=== PATIENT | female | born 1955 | race Caucasian/White ===

== ENCOUNTER 2020-10-12 14:36 | Emergency (ER) | payer OTHER, SELFPAY ==
--- NOTE | ~2020-10-12 | XR_ITS ---
EXAMINATION: XR chest 2V EXAM DATE: 10/12/2020 16:07 INDICATION: Cough and congestion for 2 days. TECHNIQUE: Frontal and lateral projections of the chest obtained and reviewed. There is no prior clementina dy for comparison. FINDINGS: The lungs are clear. There are no pleural effusions. The cardiomediastinal silhouette is within normal limits. There is no pneumothorax suspected. The bones and soft tissues are unremarkab le. IMPRESSION: No acute cardiopulmonary findings. Reviewed, dictated and finalized at location A.
[2020-10-12 15:00] VITALS: BP 152/109; PULSE 77; RESP 16; TEMP 36.3; O2SAT 99
--- NOTE | 2020-10-12 16:00 | ECG_ITS ---
Measurements Intervals [place] Rate: 67 P: 3 MO: 189 QRS: -29 QRSD: 98 T: -32 QT: 383 QTc: 407 Interpretive Statements SINUS RHYTHM VOLTAGE CRITERIA FOR LVH BORDERLINE R WAVE PROGRESSION, ANTERIOR LEADS NONSPECIFIC T-WAVE ABNORMALITY- ANTEROLAT/INF LEADS BASELINE ARTIFACT- I, II, III, AVR, AVL, AVF BORDERLINE ECG Electronically Signed On 10-12-2020 16:33:57 CDT by Elier Martell D.O.
--- NOTE | 2020-10-12 16:16 | ED.GENADULT ---
HPI - General Adult General Chief complaint: Upper Respiratory Infection Stated complaint: congestion Source: patient Mode of arrival: ambulatory Limitations: no limitations History of Present Illness HPI narrative: Patient presents for evaluation of cough for the last 2 days. She states that cough is productive of white sputum. She has experienced some pleuritic chest pain that she describes as something sitting on her chest. She denies pain other than with episodes of coughing. No fever, chills, nausea, vomiting. She states she has had mucopurulent rhinorrhea and dental pain, which she has experienced in the past with a sinus infection. In the past augmentin and prednisone have helped. She has some flonase at home, which has also helped historically. She has experienced some mild leg swelling. She is currently on furosemide and has been compliant with therapy. She states her last echocardiogram was within the last 2-3 yrs. She has a cardiac cath at that time also, which was negative, per her reports. She states that her smokes but she does not smoke herself. No personal history of VTE. She has received both of her vaccinations. No personal history of Covid. She states that she is planning on seeing family this coming weekend and wants to ensure she feels better prior to that time. Related Data Home Medications Medication Instructions Recorded Confirmed aspirin 81 mg PO DAILY 10/12/20 10/12/20 ergocalciferol (vitamin D2) 50 mcg PO DAILY 10/12/20 10/12/20 furosemide 1 mg PO DAILY 10/12/20 10/12/20 hydrocodone-acetaminophen 1 tablet PO Q6-12H 10/12/20 10/12/20 lansoprazole [Prevacid] 15 mg PO DAILY 10/12/20 10/12/20 levothyroxine 1 mcg PO DAILY 10/12/20 10/12/20 lovastatin 1 mg PO DAILY 10/12/20 10/12/20 meclizine [Antivert] 25 mg PO BID 10/12/20 10/12/20 Allergies Allergy/AdvReac Type Severity Reaction Status Date / Time CYCLOBENZAPRINE HCL Allergy Mild Rash Uncoded 10/12/20 16:01 CODIENE AdvReac Nausea, Uncoded 10/12/20 16:01 vomiting Review of Systems Review of Systems: Narrative: CONSTITUTIONAL: Denies fever, chills, or sweats. EYES: Denies visual changes, redness, or discharge. ENT: Reports mucopurulent rhinorrhea. Denies sore throat, or otalgia. CARDIOVASCULAR: Reports pleuritic chest pain but denies chest pain otherwise. Reports bilateral lower extremity swelling. Denies palpitations. RESPIRATORY: Reports cough. Denies shortness of breath. GASTROINTESTINAL: Denies abdominal pain, nausea, vomiting, or diarrhea. GENITOURINARY: Denies dysuria or hematuria. SKIN: Denies rash or itching. MUSCULOSKELETAL: Denies back pain, joint pain, or myalgia. NEUROLOGIC: Denies headache, numbness, dizziness, or weakness. PSYCHIATRIC: Denies anxiety or depression. [facility] Past Medical History Medical History (Updated 10/12/20 @ 16:40 by Samuel Cardenas, [employer], ) Hypertension Hypothyroidism Surgical History Surgical History History of endometrial ablation Family History Family History Mother No pertinent past medical history Social History Social History Smoking status: Never smoker Substance use: never Living arrangements: with family Gender identity (if verbalized by the patient): Female Sexual Orientation (if Verbalized by the Patient): Straight or Heterosexual Spiritual care concerns: No Exam Narrative: Exam Narrative: GENERAL: Well-appearing, well-nourished, and in no acute distress. HEAD: Normocephalic, atraumatic. EYES: PERRLA and EOMI. ENT: Nares clear, no rhinorrhea or epistaxis. Mucous membranes moist. Oropharynx without tonsillar hypertrophy exudate or other lesions. Bilateral TMs pearly winter nonbulging NECK: Supple. No adenopathy or masses. No carotid bruits or JVD CHEST: Clear to auscultat
== END 2020-10-12 16:46 | disposition home or self-care (01) ==
PROVIDERS: Emergency Provider Nurse Practitioner
DX: R05 Cough (principal); J00 Acute nasopharyngitis [common cold]; J01.90 Acute sinusitis, unspecified; I10 Essential (primary) hypertension; E03.9 Hypothyroidism, unspecified
CPT/HCPCS: 71046; 87426; 93005; 99213; C9803; G0463

== ENCOUNTER 2021-10-25 18:18 | Emergency (ER) | payer OTHER, SELFPAY ==
[2021-10-25 18:28] VITALS: BP 141/82; PULSE 83; RESP 16; TEMP 37.3; O2SAT 99
--- NOTE | 2021-10-25 18:49 | ED.EAR ---
HPI - Ear Problem General Chief complaint: Ear Stated complaint: ear pain Time Seen by Provider: 10/25/21 18:50 Source: patient, RN notes reviewed and old records reviewed Mode of arrival: ambulatory Limitations: no limitations History of Present Illness HPI Narrative: 65-year-old female presents to the [facility] with complaints of left ear pain and decreased hearing for the last 2 weeks. Has been taking Benadryl at night, Claritin during the day. Tried calling her primary care doctor they said it could be COVID and to go to the emergency room or the [facility]. Patient denies any other symptoms, no loss of taste or smell, no chest pain, cough, abdominal pain, nausea vomiting or diarrhea. MD Complaint: ear pain Location: left ear Related Data Home Medications Medication Instructions Recorded Confirmed aspirin 81 mg tablet 81 mg PO DAILY 10/12/20 10/25/21 ergocalciferol (vitamin D2) 50 mcg 50 mcg PO DAILY 10/12/20 10/25/21 (2,000 unit) capsule furosemide 20 mg tablet 1 mg PO DAILY 10/12/20 10/25/21 hydrocodone 5 mg-acetaminophen 325 1 tablet PO Q6-12H 10/12/20 10/25/21 mg tablet lansoprazole 15 mg capsule,delayed 15 mg PO DAILY 10/12/20 10/25/21 release (Prevacid) levothyroxine 75 mcg tablet 1 mcg PO DAILY 10/12/20 10/25/21 lovastatin 40 mg tablet 1 mg PO DAILY 10/12/20 10/25/21 meclizine 25 mg tablet 25 mg PO BID 10/12/20 10/25/21 Allergies Allergy/AdvReac Type Severity Reaction Status Date / Time CYCLOBENZAPRINE HCL Allergy Mild Rash Uncoded 10/25/21 18:20 CODIENE AdvReac Nausea, Uncoded 10/25/21 18:20 vomiting Review of Systems Review of Systems: All systems reviewed & are unremarkable except as noted in HPI and below Constitutional: Constitutional: Reports no additional constitutional complaints, Denies chills and Denies fever(s) Eyes: Eyes: Reports no additional eye complaints ENT: Reports as per HPI, Denies change in voice, Denies dental pain, Denies vertigo, Denies dizziness, Reports nasal congestion and Denies throat swelling Comments: Ear pain Cardiovascular: Cardiovascular: Reports no additional cardiovascular complaints, Denies chest pain and Denies dyspnea Respiratory: Respiratory: Reports no additional respiratory complaints, Denies cough and Denies dyspnea Gastrointestinal: Gastrointestinal: Reports no additional gastrointestinal complaints, Denies abdominal pain, Denies nausea and Denies vomiting Musculoskeletal: Musculoskeletal: Reports no additional musculoskeletal complaints Integumentary/Breasts: Skin/Breast: Reports system reviewed and no additional complaints, except as docu Neurologic: Reports system reviewed and no additional complaints, except as documented, Denies vertigo and Denies dizziness Psychiatric: Psychiatric: Reports no additional psychiatric complaints Allergic/Immunologic: Allergic/Immunologic: Reports no additional allergic/immunologic complaints and Denies throat swelling PMFSH Past Medical History Medical History (Updated 10/25/21 @ 18:55 by Maru Hernandez APRN) Hypertension Hypothyroidism Surgical History Surgical History History of endometrial ablation Family History Family History Mother No pertinent past medical history Social History Social History Smoking status: Never smoker Substance use: never Gender identity (if verbalized by the patient): Female Sexual Orientation (if Verbalized by the Patient): Straight or Heterosexual Spiritual care concerns: No Comments At the time of my signature, I reviewed and agree with the nursing past medical, surgical, social, and family history. There is no relevant family history pertinent to the patient complaint. Exam Const: General: healthy appearing and no acute distress Nutritional Appearance: well nourished [place]
== END 2021-10-25 18:58 | disposition home or self-care (01) ==
PROVIDERS: Emergency Provider Nurse Practitioner; PCP Physician Assistant
DX: H66.92 Otitis media, unspecified, left ear (principal); I10 Essential (primary) hypertension; E03.9 Hypothyroidism, unspecified; Z79.82 Long term (current) use of aspirin
CPT/HCPCS: 99213; G0463

== ENCOUNTER 2022-03-03 15:26 | Emergency (ER) | payer MEDICARE, SELFPAY ==
--- NOTE | 2022-03-03 15:31 | ED.URI ---
HPI - URI/Sore Throat General Chief Complaint: Upper Respiratory Infection Stated Complaint: Sinus Time Seen by Provider: 03/03/22 15:39 Source: patient, RN notes reviewed and old records reviewed Mode of arrival: ambulatory Limitations: no limitations History of Present Illness HPI Narrative: 66-year-old female presents to the [facility] with complaints of 2 to 3 days of sinus congestion, postnasal drip. Patient reports that her had his windows open on Sunday, Sunday woke up with sinus drainage and congestion. Has taken Flonase and her allergy medication. Has tried calling primary care provider. Denies any fevers, chest pain, abdominal pain. Related Data Home Medications Medication Instructions Recorded Confirmed aspirin 81 mg tablet 81 mg PO DAILY 10/12/20 10/25/21 ergocalciferol (vitamin D2) 50 mcg 50 mcg PO DAILY 10/12/20 10/25/21 (2,000 unit) capsule furosemide 20 mg tablet 1 mg PO DAILY 10/12/20 10/25/21 lansoprazole 15 mg capsule,delayed 15 mg PO DAILY 10/12/20 10/25/21 release (Prevacid) levothyroxine 75 mcg tablet 1 mcg PO DAILY 10/12/20 10/25/21 lovastatin 40 mg tablet 1 mg PO DAILY 10/12/20 10/25/21 meclizine 25 mg tablet 25 mg PO BID 10/12/20 10/25/21 rosuvastatin 10 mg tablet mg 03/03/22 Allergies Allergy/AdvReac Type Severity Reaction Status Date / Time CYCLOBENZAPRINE HCL Allergy Mild Rash Uncoded 03/03/22 15:30 CODIENE AdvReac Nausea, Uncoded 03/03/22 15:30 vomiting Review of Systems Review of Systems: All systems reviewed & are unremarkable except as noted in HPI and below Constitutional: Constitutional: Reports no additional constitutional complaints, Denies chills and Denies fever(s) Eyes: Eyes: Reports no additional eye complaints ENT: Reports as per HPI and Reports nasal congestion Cardiovascular: Cardiovascular: Reports no additional cardiovascular complaints Respiratory: Respiratory: Reports no additional respiratory complaints Gastrointestinal: Gastrointestinal: Reports no additional gastrointestinal complaints Musculoskeletal: Musculoskeletal: Reports no additional musculoskeletal complaints Integumentary/Breasts: Skin/Breast: Reports system reviewed and no additional complaints, except as docu Neurologic: Reports system reviewed and no additional complaints, except as documented Psychiatric: Psychiatric: Reports no additional psychiatric complaints Allergic/Immunologic: Allergic/Immunologic: Reports no additional allergic/immunologic complaints PMFSH Past Medical History Medical History Hypertension Hypothyroidism Surgical History Surgical History History of endometrial ablation Family History Family History Mother No pertinent past medical history Social History Social History Smoking status: Never smoker Substance use: never Gender identity (if verbalized by the patient): Female Sexual Orientation (if Verbalized by the Patient): Straight or Heterosexual Spiritual care concerns: No Comments At the time of my signature, I reviewed and agree with the nursing past medical, surgical, social, and family history. There is no relevant family history pertinent to the patient complaint. Exam Const: General: healthy appearing, no acute distress, alert and well nourished Nutritional Appearance: well nourished and obese Orientation/consciousness: patient oriented x3 Limitations: no limitations HENMT: Head: normal to inspection Ears: external ears normal, TM's normal bilaterally and EAC's normal Face/Nose/Sinus: Normal external nose present and Nasal discharge present clear Face and sinus: face symmetric, no ecchymosis, no erythema, no edema, no fluctuance, no lacerations and sinus tenderness maxillary Mouth: Yes Normal
[2022-03-03 15:39] VITALS: BP 149/83; PULSE 76; RESP 16; TEMP 37.3; O2SAT 98
== END 2022-03-03 15:57 | disposition home or self-care (01) ==
PROVIDERS: Emergency Provider Nurse Practitioner; PCP Physician Assistant
DX: J32.9 Chronic sinusitis, unspecified (principal); I10 Essential (primary) hypertension; E03.9 Hypothyroidism, unspecified; Z79.82 Long term (current) use of aspirin
CPT/HCPCS: 99213; G0463

== ENCOUNTER → 2023-01-03 09:22 | Outpatient (CLI) | payer MEDICARE, SELFPAY ==
--- NOTE | ~2023-01-03 | XR_ITS ---
EXAMINATION: XR hip RT min 2V DATE: 01/03/2023 09:49 INDICATION: Right hip tightness. TECHNIQUE: 3 views of right hip were obtained. COMPARISON: None. FINDINGS: There is a total right hip arthroplasty in near-anatomic alignment. No fracture. No peripro sthetic lucency to suggest loosening or infection. IMPRESSION: 1. Total right hip arthroplasty in near-anatomic alignment. Reviewed, dictated and finalized at location A.
== END ==
PROVIDERS: PCP Physician Assistant; Visit Provider Physician Assistant
DX: M62.451 Contracture of muscle, right thigh (principal); Z96.641 Presence of right artificial hip joint
CPT/HCPCS: 73502

== ENCOUNTER → 2024-01-09 08:51 | Outpatient (CLI) | payer MEDICARE, SELFPAY ==
--- NOTE | ~2024-01-09 | XR_ITS ---
XR cervical spine 4-5V Ordering provider: Joyce Booth, STACY History: . posterior neck pain x 6 months ? etiology . Comparison: None. FINDINGS: VERTEBRAL BODIES: Normal height and alignment. No visible fracture or subluxation. The dens is intact . DISK SPACES: Well maintained. Uncovertebral joint osteoarthritic changes at the level of C4-C5 is of C6 and C6-C7. Facet joint disease at multiple levels in the lower cervical area. PARASPINOUS SOFT TISSUES: No prevertebral soft tissue swelling. IMPRESSION: No acute osseous abnormality cervical spine. Reviewed, dictated and finalized at location A.
== END ==
PROVIDERS: PCP Physician Assistant; Visit Provider Physician Assistant
DX: M54.2 Cervicalgia (principal)
CPT/HCPCS: 72050

== ENCOUNTER 2024-06-15 12:54 | Emergency (ER) | payer MEDICARE, SELFPAY ==
--- NOTE | 2024-06-15 12:55 | ED_ITS ---
HPI - URI/Sore Throat General Stated Complaint: Sore Throat/Ear Irritation Time Seen by Provider: 06/15/24 12:55 Source: patient Mode of arrival: ambulatory Limitations: no limitations History of Present Illness HPI Narrative: Gisell is a 68-year-old female patient presenting to the clinic today with complaints of sinus congestion, pressure, sore throat, productive cough with yellow phlegm, going out yellow nasal drainage, and left ear pain x1 week. She denies any known fever, chills, body aches. MD elicited complaint: cough, sore throat, rhinorrhea, nasal congestion and si nus pain Related Data Home Medications ?Medication ?Instructions ?Recorded ?Confirmed ?Last Taken ?Type aspirin 81 mg tablet 81 mg PO DAILY 10/12/20 10/25/21 Unknown History ergocalciferol (vitamin D2) 50 mcg 50 mcg PO DAILY 10/12/20 10/25/21 Unknown History (2,000 unit) capsule furosemide 20 mg tablet 1 mg PO DAILY 10/12/20 10/25/21 Unknown History lansoprazole 15 mg capsule,delayed 15 mg PO DAILY 10/12/20 10/25/21 Unknown History release (Prevacid) levothyroxine 75 mcg tablet 1 mcg PO DAILY 10/12/20 10/25/21 Unknown History lovastatin 40 mg tablet 1 mg PO DAILY 10/12/20 10/25/21 Unknown History meclizine 25 mg tablet 25 mg PO BID 10/12/20 10/25/21 Unknown History rosuvastatin 10 mg tablet mg 03/03/22 Unknown History Allergies Allergy/AdvReac Type Severity Reaction Status Date / Time iohexol (From contrast - CT, Allergy Mild Itching Verified 06/15/24 13:13 X-RAY) CYCLOBENZAPRINE HCL Allergy Mild Rash Uncoded 06/15/24 13:03 CODIENE AdvReac Nausea, Uncoded 06/15/24 13:03 vomiting Review of Systems Review of Systems: Pertinent positives per HPI. Patient denies any fever, chills, rash, visual changes, dizziness, shortness of breath, chest pain, palpitations, nausea, vomiting, diarrhea, constipation, abdominal pain, or any urinary issues. PMFSH Past Medical History Medical History Hypertension Hypothyroidism Surgical History Surgical History History of endometrial ablation Family History Family History Mother No pertinent past medical history Social History Social History Smoking status: Never smoker Substance use: never Living arrangements: with family Gender identity (if verbalized by the patient): Female Sexual Orientation (if Verbalized by the Patient): Straight or Heterosexual Spiritual care concerns: No Comments At the time of my signature, I reviewed and agree with the nursing past medical, surgical, social, and family history. There is no relevant family history pertinent to the patient complaint. Exam Narrative: General: Well-developed, obese, in no apparent distress Head: Normocephalic, atraumatic Eyes: Pupils equally round and reactive to light bilaterally, EOM intact, sclera and conjunctive clear, no discharge, lids normal Ears: TMs intact, opaque, mild bulging, right ear canal clear, left ear canal red and swollen with white drainage, tenderness to palpation over the tragus and pulling of the pinna, grossly hearing normal. Nose: Nares patent, yellow nasal discharge, moderate inflammation, maxillary sinus tenderness. Mouth: Oral pharynx red without lesions or masses, good dentition, MMM. Postnasal drip Neck: Supple, trachea midline, no enlargement of anterior or posterior cervical nodes, no thyroid masses or goiter palpable. Cardio: Regular rate and rhythm, s1 and s2 normal, no murmur appreciated. Resp: Clear to auscultation bilaterally, no rhonchi, rales, wheezing or rubs Course Course Emergency Course: Portions of this record may have been created with voice recognition software. Level of Care: Express Care Visit Vital Signs Vital signs: Vital signs reviewed MDM - URI/Sore Throat MDM Narrative Medical decision making narrative: At the time of visit patient is resting comfortably on the exam table. Patient appears to be nontoxic. Plan: I suspect patient has sinusitis, postnasal drip, and left otitis externa. Prescription for Augmentin, prednisone, and ofloxacin ear drops was sent to the pharmacy. Supportive measures were discussed with the patient and they voiced understanding discharge instructions and agrees to treatment plan. Return precautions reviewed Differential Diagnosis Differential diagnosis: Likely upper respiratory infection, otitis media, sinusitis, viral infection, bronchitis, influenza, pharyngitis and other (COVID) Discharge Plan Discharge Clinical Impression: Sinusitis, Post-nasal drip, Left otitis externa Patient Disposition: Home, Self-Care Condition: Stable Instructions: Antibiotic Form Additional Instructions: Take prescription medications only as prescribed-ofloxacin ear drops, Augmentin, and prednisone Increase fluids and stay well hydrated Tylenol/motrin for pain/fever Flonase and OTC antihistamines as directed Vicks vapor rub to open sinuses Sinus rinses for congestion Cepacol spray, cough drops, throat lozenges, warm tea with honey/lemon, gargle salt water to soothe throat BRAT diet for diarrhea Clear liquids x 24 hours then advance as tolerated for nausea/vomiting Go to the ED if you develop a worsening in your condition- high fever not controlled by Tylenol or Motrin, dehydration, weakness, lethargy, shortness of breath, or chest pain. Follow up with your PCP in 3-5 days if symptoms persist. Patient Language: Tuvaluan Prescriptions: New prednisone 20 mg tablet 40 mg PO DAILY 5 Days Qty: 10 0RF amoxicillin-pot clavulanate 875-125 mg tablet 1 tablet PO Q12H 10 Days Qty: 20 0RF ofloxacin 0.3 % drops 5 drp otic (ear) BID 7 Days Qty: 5 0RF No Action lovastatin 40 mg tablet 1 mg PO DAILY levothyroxine 75 mcg tablet 1 mcg PO DAILY meclizine [Antivert] 25 mg Tablet 25 mg PO BID lansoprazole [Prevacid] 15 mg Capsule,Delayed Release(Dr/Ec) 15 mg PO DAILY aspirin 81 mg Tablet 81 mg PO DAILY furosemide 20 mg tablet 1 mg PO DAILY ergocalciferol (vitamin D2) 50 mcg (2,000 unit) Capsule 50 mcg PO DAILY fluticasone propionate [Flonase Allergy Relief] 50 mcg/actuation spray,suspension 1 spray intranasal BID Qty: 16 0RF Rx Instructions: administer into each nostril rosuvastatin 10 mg tablet benzonatate 100 mg capsule 100 mg PO TID PRN (Reason: cough) Qty: 12 0RF Follow-up/Referrals: Leobardo,STACY Cook [Primary Care Provider] - Quality NIHSS Nursing Documentation ED NIHSS nursing documentation: reviewed/agree
[2024-06-15 13:03] VITALS: BP 127/72; PULSE 90; RESP 16; TEMP 36.8; O2SAT 94
== END 2024-06-15 13:15 | disposition home or self-care (01) ==
PROVIDERS: Emergency Provider Nurse Practitioner Family; PCP Physician Assistant
DX: J32.9 Chronic sinusitis, unspecified (principal); R09.82 Postnasal drip; H60.92 Unspecified otitis externa, left ear; I10 Essential (primary) hypertension; E03.9 Hypothyroidism, unspecified; Z79.82 Long term (current) use of aspirin
CPT/HCPCS: 99213; G0463

== ENCOUNTER 2025-04-05 16:31 | Emergency (ER) | payer MEDICARE, SELFPAY ==
[2025-04-05 16:45] VITALS: BP 135/88; PULSE 72; RESP 20; TEMP 37; O2SAT 98
--- NOTE | 2025-04-05 16:46 | ED.EYEPROB ---
HPI - Eye Problem General Chief complaint: Eye Problems Stated complaint: Left Eye Irritation Time Seen by Provider: 04/05/25 16:37 Source: patient and RN notes reviewed Mode of arrival: ambulatory Limitations: no limitations History of Present Illness HPI Narrative: 69-year-old female presents with concern for left eye pain. She reports earlier today she scratched her eye while combing her dog. She reports she had pain right away she went to see the pain was relieved when she woke up she had pain again. She denies vision changes. chief complaint: eye pain Related Data Home Medications ?Medication ?Instructions ?Recorded ?Confirmed ?Last Taken ?Type aspirin 81 mg tablet 81 mg PO DAILY 10/12/20 10/25/21 Unknown History ergocalciferol (vitamin D2) 50 mcg 50 mcg PO DAILY 10/12/20 10/25/21 Unknown History (2,000 unit) capsule furosemide 20 mg tablet 1 mg PO DAILY 10/12/20 10/25/21 Unknown History lansoprazole 15 mg capsule,delayed 15 mg PO DAILY 10/12/20 10/25/21 Unknown History release (Prevacid) levothyroxine 75 mcg tablet 1 mcg PO DAILY 10/12/20 10/25/21 Unknown History rosuvastatin 10 mg tablet mg 03/03/22 Unknown History cyanocobalamin (vitamin B-12) 1,000 mcg PO DAILY 04/05/25 Unknown History 1,000 mcg tablet (Vitamin B-12) venlafaxine 37.5 mg mg PO 04/05/25 Unknown History capsule,extended release 24 hr Allergies Allergy/AdvReac Type Severity Reaction Status Date / Time iohexol (From contrast - CT, Allergy Mild Itching Verified 04/05/25 16:49 X-RAY) CYCLOBENZAPRINE HCL Allergy Mild Rash Uncoded 06/15/24 13:03 CODIENE AdvReac Nausea, Uncoded 06/15/24 13:03 vomiting Review of Systems Review of Systems: CONSTITUTIONAL: Denies malaise, chills, sweats, or fever. EYES: Denies visual changes. Denies redness, discharge. Reports left eye pain ENT: Denies rhinorrhea, congestion, sinus pain, otalgia or sore throat. SKIN: Denies rash or itching. NEUROLOGIC: Denies numbness, weakness, or headache. PSYCHIATRIC: Denies anxiety or depression. All systems reviewed & are unremarkable except as noted in HPI and below PMFSH Past Medical History Medical History Hypertension Hypothyroidism Surgical History Surgical History History of endometrial ablation Family History Family History Mother No pertinent past medical history Social History Social History Substance use: never Living arrangements: with family Gender identity (if verbalized by the patient): Female Sexual Orientation (if Verbalized by the Patient): Straight or Heterosexual Spiritual care concerns: No Comments At time of signature, agree with nursing past medical, surgical, social and family history. There is no relevant family history pertinent to the presenting complaint Exam Narrative: GENERAL: Well-appearing, well-nourished, and in no acute distress. HEAD: Normocephalic, atraumatic. EYES: PERRLA and EOMI. No nystagmus. Bilateral conjunctivae and sclera clear. Upper and lower eyelid unremarkable, no periorbital edema noted. Corneal abrasion noted upon Wood's lamp exam, see note ENT: Nares clear, turbinates pink, no rhinorrhea or epistaxis. Mucous membranes moist. TM pearly winter with sharp light reflex bilaterally; no tragal tenderness. NECK: Supple. CHEST: No respiratory distress. Speaks in full sentences. HEART: Regular rate and rhythm. SKIN: Warm, dry, no visible rash. NEURO: Alert and oriented x3. PSYCH: Normal mood and affect Course Course Emergency Course: Patient is aware of diagnosis, understands and agrees to treatment plan. Anticipatory guidance given. Patient agrees to follow-up as directed and is aware of reasons to seek care at the emergency department. Portions of this record may have been created with voice recognition software Level of Care: Express Care Visit Vital Signs Vital signs: Reviewed. Procedures Other Procedure Procedure 1: Other Procedure: Tetracaine 2 gtt instilled in left eye, fluorescein stain applied. Corneal abrasion noted upon taylor lamp exam at approximately 7 o'clock in relation to the pupil. Eye washed with NS 100 ml. No foreign bodies or Eleazar sign noted. MDM - Eye Problem MDM Narrative Medical decision making narrative: Consideration of the following conditions may be warranted for the presenting problem, they are not final diagnoses: Bacterial conjunctivitis, allergic conjunctivitis, viral conjunctivitis, foreign body, blepharitis, chalazion, hordeolum, corneal abrasion, preseptal cellulitis, orbital cellulitis. No evidence of proptosis, ophthalmoplegia, vision loss, pain with eye movement. Exam findings show no acute concerns or changes; patient is non-toxic appearing and is in no distress. Patient is appropriate for outpatient treatment and follow-up. Critical Care Time Critical Care Time Critical Care Time: No Discharge Plan Discharge Clinical Impression: Corneal abrasion Patient Disposition: Home Condition: Stable Instructions: Corneal Abrasion (ED) Additional Instructions: Corneal abrasions will heal in 1-2 days. Keep your eye shut and wear sunglasses or stay in low light to avoid light sensitivity. Do not touch or rub your eye or use a fabric patch You may take Tylenol or ibuprofen for pain Follow-up with PCP or manager media if condition is not improving in 2-3days. Patient Language: Belgian Prescriptions: New polymyxin B sulf-trimethoprim 10,000 unit- 1 mg/mL drops 1 drp LEFT EYE Q3H 7 Days Qty: 10 0RF Rx Instructions: while awake; do not exceed 6 doses in 24 hours No Action levothyroxine 75 mcg tablet 1 mcg PO DAILY lansoprazole [Prevacid] 15 mg Capsule,Delayed Release(Dr/Ec) 15 mg PO DAILY aspirin 81 mg Tablet 81 mg PO DAILY furosemide 20 mg tablet 1 mg PO DAILY ergocalciferol (vitamin D2) 50 mcg (2,000 unit) Capsule 50 mcg PO DAILY rosuvastatin 10 mg tablet venlafaxine 37.5 mg capsule,extended release 24hr PO cyanocobalamin (vitamin B-12) [Vitamin B-12] 1,000 mcg tablet 1,000 mcg PO DAILY Follow-up/Referrals: Leobardo,STACY Cook [Primary Care Provider, Unknown] Time of Disposition: 17:02
[2025-04-05] MEDS: FLUORESCEIN SOD 1 MG/STRIP LEFT EYE (17:03)
[2025-04-05] MEDS: DACRIOSE EYE IRRIGATION 118 ML BOTTLE LEFT EYE (17:03)
[2025-04-05] MEDS: TETRACAINE HCL 0.5% OPHTH SOLN 4 ML BTL LEFT EYE (17:06)
== END 2025-04-05 17:12 | disposition home or self-care (01) ==
PROVIDERS: Emergency Provider Nurse Practitioner; PCP Physician Assistant
DX: S05.02XA Injury of conjunctiva and corneal abrasion without foreign body, left eye, initial encounter (principal); X58.XXXA Exposure to other specified factors, initial encounter; I10 Essential (primary) hypertension; E03.9 Hypothyroidism, unspecified; Z79.82 Long term (current) use of aspirin
CPT/HCPCS: 99213; A9270; G0463